=== PATIENT | female | born 1960 | race Caucasian/White ===

== ENCOUNTER 2016-08-14 18:16 | Emergency (ER) | payer BC ==
[2016-08-14 18:38] VITALS: TEMP 99.9
[2016-08-14] MEDS ORDERED: SODIUM CHLORIDE 0.9% 1,000 ML IV STA (21:05)
[2016-08-14] MEDS ORDERED: METOCLOPRAMIDE 5 MG/ML 2 ML VIAL IVP STA (21:05)
[2016-08-14] MEDS ORDERED: HYDROmorphone 1 MG/ML 1 ML SYRINGE IVP STA (21:05)
[2016-08-14] MEDS ORDERED: diphenhydrAMINE 50 MG/ML 1 ML VIAL IVP STA (21:05)
--- NOTE | 2016-08-14 21:28 | ED ---
Abdominal Pain HPI - General Chief Complaint: Abdominal Pain Stated Complaint: chest pain Time Seen by Provider: 08/14/16 20:37 Source: patient, RN notes reviewed Mode of arrival: ambulatory Limitations: no limitations - History of Present Illness Initial Comments: Patient has a 55-year-old female presents to emergency room with a chief complaint right upper quadrant epigastric abdominal pain for the past 4 days. Patient reports it is worse after eating. His states that radiates towards her back. Patient reports that it makes it difficult for her to breathe occasionally due to the pain. She reports that she has had no vomiting but is slightly nauseated. She reports she has chronic constipation, and denies any blood in her stools or pain with bowel movements. Patient reports she feels achy and slightly feverish at this time. - Related Data Previous Rx's Medication Instructions Recorded Dicyclomine [Bentyl] 10 mg PO TID #15 capsule 08/15/16 Ondansetron [Zofran] 4 mg PO Q8HR PRN #8 tab 08/15/16 Allergies Allergy/AdvReac Type Severity Reaction Status Date / Time No Known Allergies Allergy Unverified 08/14/16 20:50 Review of Systems ROS Statement: Those systems with pertinent positive or pertinent negative responses have been documented in the HPI. ROS Other: All systems not noted in ROS Statement are negative. Past Medical History Past Medical History: No Reported History History of Any Multi-Drug Resistant Organisms: None Reported Past Surgical History: Hysterectomy Past Psychological History: No Psychological Hx Reported Smoking Status: Never smoker Past Alcohol Use History: Occasional Past Drug Use History: None Reported General Exam - General Exam Comments Initial Comments: Pleasant 55 year old female in no acute distress. Limitations: no limitations Head exam: Present: atraumatic, normocephalic, normal inspection Eye exam: Present: normal appearance, PERRL, EOMI. Absent: scleral icterus, conjunctival injection, periorbital swelling ENT exam: Present: normal exam, mucous membranes moist Neck exam: Present: normal inspection. Absent: tenderness, meningismus, lymphadenopathy Respiratory exam: Present: normal lung sounds bilaterally. Absent: respiratory distress, wheezes, rales, rhonchi, stridor Cardiovascular Exam: Present: regular rate, normal rhythm, normal heart sounds. Absent: systolic murmur, diastolic murmur, rubs, gallop, clicks GI/Abdominal exam: Present: soft, tenderness (diffuse abdominal tenderness, main tenderness is in RUQ), normal bowel sounds. Absent: distended, guarding, rebound, rigid Extremities exam: Present: normal inspection, full ROM, normal capillary refill. Absent: tenderness, pedal edema, joint swelling, calf tenderness Back exam: Present: normal inspection Neurological exam: Present: alert, oriented X3, CN II-XII intact Psychiatric exam: Present: normal affect, normal mood Skin exam: Present: warm, dry, intact, normal color. Absent: rash Course Vital Signs 08/14/16 08/15/16 18:36 01:38 Temperature 99.9 F H Pulse Rate 66 70 Respiratory 20 16 Rate Blood Pressure 146/75 120/80 O2 Sat by Pulse 99 98 Oximetry Medical Decision Making - Medical Decision Making Patient is a 55 year old female with 4 days of RUQ abdominal pain, that radiates to her chest and causes difficulty breathing occasionally Patient's lab work was all reviewed to be negative, including cardiac enzymes and d dimer. Patient's right upper quadrant ultrasound was also negative for any acute cholecystitis. KUB and chest x-ray was normal. Given patient's significant tenderness primarily did use abdomen and pelvis CT. Is negative for anything acute besides enteritis. Patient will be discharged at this time with a prescription of Bentyl and started take Motrin Tylenol for pain. I advised patient to follow-up with the primary care provider. Patient understands treatment plan and will comply. - Lab Data Result diagrams: 08/14/16 20:45 08/14/16 20:45 Lab Results 08/14/16 08/14/16 08/14/16 Range/Units 20:45 20:45 20:45 WBC 6.4 (3.8-10.6) k/uL RBC 4.99 (3.80-5.40) m/uL Hgb 15.3 (11.4-16.0) gm/dL Hct 46.9 H (34.0-46.0) % MCV 93.9 (80.0-100.0) fL MCH 30.6 (25.0-35.0) pg MCHC 32.6 (31.0-37.0) g/dL RDW 12.1 (11.5-15.5) % Plt Count 213 (150-450) k/uL Neutrophils % 53 % Lymphocytes % 37 % Monocytes % 6 % Eosinophils % 1 % Basophils % 1 % Neutrophils # 3.4 (1.3-7.7) k/uL Lymphocytes # 2.4 (1.0-4.8) k/uL Monocytes # 0.4 (0-1.0) k/uL Eosinophils # 0.1 (0-0.7) k/uL Basophils # 0.1 (0-0.2) k/uL D-Dimer (<0.60) mg/L FEU Sodium 141 (137-145) mmol/L Potassium 4.2 (3.5-5.1) mmol/L Chloride 101 (98-107) mmol/L Carbon Dioxide 24 (22-30) mmol/L Anion Gap 16 mmol/L BUN 13 (7-17) mg/dL Creatinine 0.59 (0.52-1.04) mg/dL Est GFR (MDRD) Af Amer >60 (>60 ml/min/1.73 sqM) Est GFR (MDRD) Non-Af >60 (>60 ml/min/1.73 sqM) Glucose 104 H (74-99) mg/dL Calcium 10.3 H (8.4-10.2) mg/dL Total Bilirubin 1.2 (0.2-1.3) mg/dL AST 33 (14-36) U/L ALT 51 (9-52) U/L Alkaline Phosphatase 73 (38-126) U/L Total Creatine Kinase 65 (30-135) U/L CK-MB (CK-2) 1.5 (0.0-2.4) ng/mL CK-MB (CK-2) Rel Index 2.3 Troponin I <0.012 (0.000-0.034) ng/mL Total Protein 8.3 H (6.3-8.2) g/dL Albumin 5.2 H (3.5-5.0) g/dL Amylase 96 (30-110) U/L Lipase 166 (23-300) U/L Urine Color Urine Appearance (Clear) Urine pH (5.0-8.0) Ur Specific Sprague (1.001-1.035) Urine Protein (Negative) Urine Glucose (UA) (Negative) Urine Ketones (Negative) Urine Blood (Negative) Urine Nitrate (Negative) Urine Bilirubin (Negative) Urine Urobilinogen (<2.0) mg/dL Ur Leukocyte Esterase (Negative) Urine RBC (0-5) /hpf Urine WBC (0-5) /hpf Ur Squamous Epith Cells (0-4) /hpf Urine Bacteria (None) /hpf Urine Mucus (None) /hpf 08/14/16 08/14/16 Range/Units 20:45 20:45 WBC (3.8-10.6) k/uL RBC (3.80-5.40) m/uL Hgb (11.4-16.0) gm/dL Hct (34.0-46.0) % MCV (80.0-100.0) fL MCH (25.0-35.0) pg MCHC (31.0-37.0) g/dL RDW (11.5-15.5) % Plt Count (150-450) k/uL Neutrophils % % Lymphocytes % % Monocytes % % Eosinophils % % Basophils % % Neutrophils # (1.3-7.7) k/uL Lymphocytes # (1.0-4.8) k/uL Monocytes # (0-1.0) k/uL Eosinophils # (0-0.7) k/uL Basophils # (0-0.2) k/uL D-Dimer 0.27 (<0.60) mg/L FEU Sodium (137-145) mmol/L Potassium (3.5-5.1) mmol/L Chloride (98-107) mmol/L Carbon Dioxide (22-30) mmol/L Anion Gap mmol/L BUN (7-17) mg/dL Creatinine (0.52-1.04) mg/dL Est GFR (MDRD) Af Amer (>60 ml/min/1.73 sqM) Est GFR (MDRD) Non-Af (>60 ml/min/1.73 sqM) Glucose (74-99) mg/dL Calcium (8.4-10.2) mg/dL Total Bilirubin (0.2-1.3) mg/dL AST (14-36) U/L ALT (9-52) U/L Alkaline Phosphatase (38-126) U/L Total Creatine Kinase (30-135) U/L CK-MB (CK-2) (0.0-2.4) ng/mL CK-MB (CK-2) Rel Index Troponin I (0.000-0.034) ng/mL Total Protein (6.3-8.2) g/dL Albumin (3.5-5.0) g/dL Amylase (30-110) U/L Lipase (23-300) U/L Urine Color Yellow Urine Appearance Clear (Clear) Urine pH 5.5 (5.0-8.0) Ur Specific Sprague 1.014 (1.001-1.035) Urine Protein Negative (Negative) Urine Glucose (UA) Negative (Negative) Urine Ketones Negative (Negative) Urine Blood Trace H (Negative) Urine Nitrate Negative (Negative) Urine Bilirubin Negative (Negative) Urine Urobilinogen <2.0 (<2.0) mg/dL Ur Leukocyte Esterase Moderate H (Negative) Urine RBC 1 (0-5) /hpf Urine WBC 2 (0-5) /hpf Ur Squamous Epith Cells 1 (0-4) /hpf Urine Bacteria Rare H (None) /hpf Urine Mucus Rare H (None) /hpf 08/14/16 21:28 Patient's EKG shows sinus bradycardia. The degree of 50 bpm. OH interval 154 ms. QRS duration 84 ms. QT/QTc 422/414 ms. - Radiology Data Radiology results: report reviewed KUB x-ray shows that there has suggested a mild ileus the abdomen. No bowel obstruction changes are noted. CXR shows no acute process. RUQ US: No evidence of gallstones in the gallbladder. No evidence of acute cholecystitis. Benign-appearing cyst in the left kidney measuring 0.7 x 1.[address] abdomen and pelvis show no acute process besides enteritis. No bowel obstruction, diverticulitis, gallbladder etiology. Disposition Clinical Impression: Gastroenteritis Disposition: HOME SELF-CARE Condition: Good Instructions: Enteritis (ED) Additional Instructions: Patient instructed to take Motrin and Tylenol for pain. Patient is to remain hydrated. Follow-up with primary care physician. Return to the [facility] if any alarming signs or symptoms occur. Take prescription as directed. Prescriptions: Dicyclomine [Bentyl] 10 mg PO TID #15 capsule Ondansetron [Zofran] 4 mg PO Q8HR PRN #8 tab PRN Reason: Nausea And Vomiting Referrals: Brooke Olson MD [STAFF PHYSICIAN] - 08/20/16 Time of Disposition: 01:24
[2016-08-14 21:32] LABS: Basophils # (A) 0.1 k/uL (0-0.2); Basophils % (A) 1 %; CH 32.2; CHCM 34.4; Eosinophils # (A) 0.1 k/uL (0-0.7); Eosinophils % (A) 1 %; HCT 46.9 % (34.0-46.0); HDW 2.23; HGB 15.3 gm/dL (11.4-16.0); Luc # (Auto) 0.11; Luc % (Auto) 2; Lymphocytes # (A) 2.4 k/uL (1.0-4.8); Lymphocytes % (A) 37 %; MCH 30.6 pg (25.0-35.0); MCHC 32.6 g/dL (31.0-37.0); MCV 93.9 fL (80.0-100.0); Mean Platelet Volume 7.8; Monocytes # (A) 0.4 k/uL (0-1.0); Monocytes % (A) 6 %; Neutrophils # (A) 3.4 k/uL (1.3-7.7); Neutrophils % (A) 53 %; RBC 4.99 m/uL (3.80-5.40); RDW 12.1 % (11.5-15.5); WBC 6.4 k/uL (3.8-10.6); WBC (Perox) 6.57
[2016-08-14 21:35] LABS: Appearance,Urine Clear (Clear); Bacteria,Urine Rare /hpf; Bilirubin,Urine Negative (Negative); Glucose,Urine (UA) Negative (Negative); Ketones,Urine Negative (Negative); Leukocyte Esterase,Urine Moderate (Negative); Mucus,Urine Rare /hpf; Nitrite,Urine Negative (Negative); PH, Urine 5.5 (5.0-8.0); Particle Count 2154; Protein,Urine Negative (Negative); RBC,Urine 1 /hpf (0-5); Specific Gravity,Urine 1.014 (1.001-1.035); Squamous Epithelial Cell,Urine 1 /hpf (0-4); UA Billing (MACRO vs. MICRO) MICRO; Urobilinogen,Urine <2.0 mg/dL (<2.0); WBC,Urine 2 /hpf (0-5)
[2016-08-14 21:41] LABS: ALT 51 U/L (9-52); AST 33 U/L (14-36); Alkaline Phosphatase 73 U/L (38-126); Amylase 96 U/L (30-110); Anion Gap 16 mmol/L; Blood Urea Nitrogen 13 mg/dL (7-17); Calcium 10.3 mg/dL (8.4-10.2); Carbon Dioxide 24 mmol/L (22-30); Chloride 101 mmol/L (98-107); Glucose 104 mg/dL (74-99); Non-African American GFR(MDRD) >60 (>60 ml/min/1.73 sqM); Potassium 4.2 mmol/L (3.5-5.1); Sodium 141 mmol/L (137-145); Total Bilirubin 1.2 mg/dL (0.2-1.3); Total Protein 8.3 g/dL (6.3-8.2)
[2016-08-14 22:00] LABS: Creatine Kinase 65 U/L (30-135)
[2016-08-14 22:13] LABS: Creatine Kinase MB 1.5 ng/mL (0.0-2.4); Troponin I <0.012 ng/mL (0.000-0.034)
--- NOTE | 2016-08-14 22:28 | XR ---
EXAMINATION TYPE: XR chest 2V DATE OF EXAM: 08/14/2016 10:21 PM COMPARISON: NONE HISTORY: Epigastric pain x4 days TECHNIQUE: Frontal and lateral views of the chest are obtained. FINDINGS: Chronic lung changes are suggested bilaterally. There is no focal air space opacity, pleural effusion, or pneumothorax seen. The cardiac silhouette size is within normal limits. Mild degenerative changes are present in the thoracic spine.. IMPRESSION: No acute cardiopulmonary process.
--- NOTE | 2016-08-14 22:33 | XR ---
EXAMINATION TYPE: XR KUB DATE OF EXAM: 08/14/2016 10:21 PM CLINICAL HISTORY: Epigastric pain x4 days history of hysterectomy. TECHNIQUE: 2 frontal upright radiographs of abdomen were obtained. COMPARISON: None. FINDINGS: There is suggestion of few air-fluid levels in the right lower abdomen and pelvis with mild ileus sindy nges. No significant bowel obstruction changes are noted. There is no visceromegaly, pneumoperitoneum, or abnormal calcification appreciated. The lung bases are clear and the osseous structures are intact. Mild levoscoliosis is present in the thoracolumbar s pine. IMPRESSION: 1. Suggestion of mild ileus in the abdomen. 2. No bowel obstruction changes are noted.
--- NOTE | 2016-08-14 23:00 | US ---
EXAMINATION TYPE: US gallbladder DATE OF EXAM: 08/14/2016 10:37 PM COMPARISON: NONE CLINICAL HISTORY: RUQ pain x 4 days. NPO.. EXAM MEASUREMENTS: Liver Length: 16.3 cm Gallbladder Wall: 0.1 cm CBD: 0.2 cm within normal limits. Right Kidney: 9.8 x 5.2 x 3.7 cm Pancreas: Visualized head and body of pancreas appears unremarkable. Liver: wnl Gallbladder: wnl, fold seen Evidence for sonographic Price's sign: neg CBD: wnl Right Kidney: medial anechoic lesion at hilum= 0.7 x 1.2 x 0.6 cm no hydronephrosis in the right ki dney. IMPRESSION: 1. No gallstones in the gallbladder. No definite evidence of acute cholecystitis. 2. Benign-appearing cyst in the left kidney measuring 0.7 x 1.2 x 0.6 cm.
[2016-08-14] MEDS ORDERED: RX INFO: IV CONTRAST WAS GIVEN 1 EACH MISC MISCELLANE PRN (23:40)
--- NOTE | 2016-08-15 01:21 | CT ---
EXAMINATION TYPE: CT abdomen pelvis w con DATE OF EXAM: 08/15/2016 12:17 AM COMPARISON: NONE HISTORY: epigastric pain X4 days no surgical history. CT DLP: 387.90 mGycm Automated exposure control for dose reduction was used. TECHNIQUE: Helical acquisition of images was performed from the lung bases through the pelvis. CONTRAST: Performed without Oral Contrast and with IV Contrast, patient injected with 100 mL of Omnipaque 300. FINDINGS: LUNG BASES: No significant abnormality is appreciated. LIVER/GB: No significant abnormality is appreciated. PANCREAS: No significant abnormality is seen. SPLEEN: No significant abnormality is seen. ADRENALS: No significant abnormality is seen. KIDNEYS: No significant abnormality is seen. REPRODUCTIVE ORGANS: Uterus is probably surgically absent. URINARY BLADDER: No significant abnormality is seen. PELVIC ADENOPATHY: None visualized. OSSEOUS STRUCTURES: No significant abnormality is seen. BOWEL: Stomach appears grossly unremarkable. Small bowel loops showed mild fluid distention with pos sible mild ileus changes or enteritis changes. Mild gaseous distention of colonic bowel loops is note d with fecal material. No significant bowel obstruction is noted. Appendix is not visualized. No significant inflammation is noted in the appendix area. IMPRESSION: 1. POSSIBLE MILD ENTERITIS CHANGES. 2. NO SIGNIFICANT ACUTE ABNORMALITIES ARE NOTED IN THE ABDOMEN AND PELVIS.
[2016-08-15] MEDS ORDERED: DICYCLOMINE 20 MG TAB PO STA (01:31)
[2016-08-15 01:39] VITALS: BP 120/80; PULSE 70; RESP 16
== END 2016-08-15 01:38 | disposition home or self-care (01) ==
LOC: EC 18:16
DX: K52.9 Noninfective gastroenteritis and colitis, unspecified (principal); K59.00 Constipation, unspecified; N28.1 Cyst of kidney, acquired
CPT/HCPCS: 99285; 36415; 93005; 85379; 80053; 82150; 82550; 82553; 83690; 84484; 85025; 81001; 71020; 74000; 76705; 74177; J1200; J2765; J1170; Q9967